=== PATIENT | female | born 1965 | race Hispanic/Latino ===

== ENCOUNTER 2017-09-18 10:15 | Emergency (ER) | payer OTHER ==
[2017-09-18 11:03] LABS: BASOPHILS % (AUTO) 0.7 % (0.0-5.0); EOSINOPHILS % (AUTO) 2.7 % (0.0-8.0); HEMATOCRIT 34.1 % (36-48); LYMPHOCYTES % (AUTO) 33.6 % (21.0-51.0); MEAN CORPUSCULAR HEMOGLOBIN 32.1 pg (27.0-33.0); MEAN CORPUSCULAR HGB CONC 34.9 g/dL (32.0-36.0); MEAN CORPUSCULAR VOLUME 91.9 fL (79-99); MONOCYTES % (AUTO) 5.8 % (3.0-13.0); NEUTROPHILS % (AUTO) 57.2 % (40.0-77.0); PLATELET COUNT (AUTO) 214 K/uL (130-400); RED BLOOD CELL COUNT(AUTO) 3.71 MIL/uL (4.00-5.50); RED CELL DISTRIBUTION WIDTH 13.3 % (11.0-15.5); WHITE BLOOD COUNT (AUTO) 6.3 K/uL (4.8-10.8)
[2017-09-18 11:10] LABS: CREATININE 0.7 mg/dL (0.5-1.5)
== END 2017-09-18 12:03 | disposition home or self-care (01) ==
LOC: EDH 10:15
DX: H65.03 Acute serous otitis media, bilateral (principal); I10 Essential (primary) hypertension; E11.9 Type 2 diabetes mellitus without complications; E78.5 Hyperlipidemia, unspecified
CPT/HCPCS: 36415; 80048; 84484; 85025

== ENCOUNTER 2017-10-04 20:16 | Emergency (ER) | payer OTHER | END 2017-10-04 20:52 | disposition home or self-care (01) | LOC: EDH 20:16 | DX: I10 Essential (primary) hypertension (principal); E11.65 Type 2 diabetes mellitus with hyperglycemia; E78.5 Hyperlipidemia, unspecified; Z90.710 Acquired absence of both cervix and uterus; Z90.49 Acquired absence of other specified parts of digestive tract | CPT/HCPCS: 82948; 99282 ==

== ENCOUNTER 2019-08-02 01:19 | Emergency (ER) | payer OTHER ==
[2019-08-02] MEDS ORDERED: ORPHENADRINE CITRATE 30 MG/ML ML ONE (02:01)
[2019-08-02] MEDS ORDERED: KETOROLAC TROMETHAMINE 60 MG/2 ML VIAL ONE (02:01)
== END 2019-08-02 02:43 | disposition home or self-care (01) ==
LOC: EDH 01:19
DX: M54.6 Pain in thoracic spine (principal); M62.838 Other muscle spasm; G44.209 Tension-type headache, unspecified, not intractable; E11.9 Type 2 diabetes mellitus without complications; E78.5 Hyperlipidemia, unspecified; I10 Essential (primary) hypertension
CPT/HCPCS: 96372 ×2; 99284; J1885; J2360

== ENCOUNTER 2024-05-27 13:18 | Emergency (ER) | payer BC, OTHER ==
[~2024-05-27] VITALS: Ht 160 cm; Wt 75.7 kg
[~2024-05-27 13:18] MED LIST: CIPR-278 PO
[2024-05-27 13:27] VITALS: BP_DIAS 76
[2024-05-27] MEDS: OCTYL 2-CYANOACRYLATE 1 EACH TP SCH (14:24)
[2024-05-27] MEDS: teTANUS/diphthERIA TOXOID [ADULT] 0.5 ML VIAL IM ONE (14:29)
--- NOTE | 2024-05-27 14:56 | ERN ---
General Chief Complaint: Laceration/Avulsion Stated Complaint: LACERACTION ON LEFT FINGER Time Seen by MD: 13: Time Seen by Midlevel: 13:22 Source: patient History of Present Illness Initial Comments Patient is a 58-year-old female with a past medical history of type 2 diabetes presenting for evaluation of a laceration to her left thumb. Patient states she was cooking when she accidentally sliced her left thumb. She denies being up-to-date with her tetanus vaccination and states she has not had one in over 10 years. Patient denies any other symptoms at this time. Allergies: Coded Allergies: No Known Drug Allergies (Unverified Allergy, Unknown, 08/02/19) Home Meds Active Scripts Ciprofloxacin HCl (Cipro) 500 Mg Tablet, 1 TAB PO BID for 7 Days, #14 TAB 0 Refills Prov:GANGA PARIKH MD 09/19/21 Past Medical History Past Medical History: Diabetes-Type II, High Cholesterol Past Surgical History: Other Surgical History Other: TUBAL LIGATION ROS Dictation CONSTITUTIONAL: Negative except for HPI HEAD/FACE: Negative except for HPI EENT: Negative except for HPI RESPIRATORY: Negative except for HPI GASTROINTESTINAL/ABDOMINAL: Negative except for HPI GENITOURINARY: Negative except for HPI MUSCULOSKELETAL: Negative except for HPI INTEGUMENTARY: Negative except for HPI NEUROLOGICAL/PSYCH: Negative except for HPI HEMATOLOGIC/LYMPHATIC: Negative except for HPI All Systems Negative, Except as noted above. 13 point review of systems assessed and all negative except for above. Physical Exam Physical Exam Dictation PHYSICAL EXAM: GENERAL: alert,, awake oriented x 3 HEENT: EOMI, Sclera non icteric, moist mucosa NECK: Supple, no JVD, trachea midline LUNGS: Clear breath sounds bilaterally. No wheezes HEART: Regular rate and rhythm. Normal S1 and S2, without murmurs ABD: Abdomen soft, nontender. Bowel sounds present EXT: No clubbing or cyanosis, NEURO: Alert and oriented to person, follows commands Skin: 1 cm laceration to the distal aspect of the left thumb, there is now involvement, normal capillary refill to the left hand, left upper extremity is neurovascularly intact MDM MDM: Patient is a 58-year-old female with a past medical history of type 2 diabetes presenting for evaluation of a laceration to her left thumb. Patient states she was cooking when she accidentally sliced her left thumb. She denies being up-to-date with her tetanus vaccination and states she has not had one in over 10 years. Patient denies any other symptoms at this time. On physical examination patient has a 1 cm superficial laceration to the left distal 1st digit, there is nail involvement with minimal actively bleeding. Left hand is neurovascularly intact. No need for advanced imaging at this time as laceration appears to be superficial. Patient is refusing sutures. Laceration was successfully repaired with Dermabond after being thoroughly cleansed with wound cleanser. Tetanus vaccination was given in the emergency department patient wi ll be discharged home. Wound care precautions were given to the patient. Patient was advised to follow up with PCP in 2-3 days for repeat evaluation. Differential diagnosis: Laceration, abrasion, contusion There are no social concerns with this patient. Prescription drug management Prescriptions will include: None Medical management and examination interpretation discussions were had by me with other qualified healthcare professionals as indicated for the patient's care. ED Course Orders Procedure Category Date Status Time Dermabond (Dermabond) PHA 05/27/24 Complete 14:30 Tetanus,Diphtheria PHA 05/27/24 Complete Tox [Adult] (Diphther 14:30 Current Medications Medications (Trade) Dose Ordered Sig/Bonifacio Route PRN Reason Start Time Stop Time Status Last Admin Dose Admin Octyl Cyanoacrylate (Dermabond) 1 each ONCE TP 05/27/24 14:30 05/27/24 15:21 DC 05/27/24 14:24 Tetanus/ Diphtheria Toxoids Adsorbed (DiphthERIA-teTANUS TOXOID [ADULT]/ DECAVAC) 0.5 ml ONCE ONCE IM 05/27/24 14:30 05/27/24 14:31 DC 05/27/24 14:29 Vital Signs Date Time Temp Pulse Resp B/P (MAP) Pulse Ox O2 Delivery O2 Flow Rate FiO2 05/27/24 15:18 98.1 74 16 136/ 100 Room Air* 0 21 05/27/24 13:27 97.9 92 20 124/76 99 Room Air Laceration/Wound Repair Laceration/Wound Repair : Wound Location: upper extremity (Distal aspect of the left 1st digit) Wound Length (cm): 1 Wound's Depth, Shape: superficial Wound Explored: clean Betadine Prep?: No Wound Debrided: minimal Wound Repaired With: Dermabond Layer Closure?: No Sterile Dressing Applied?: Yes DX & DISP Disposition: Discharge Departure Impression: Primary Impression: Laceration of left thumb Condition: Stable Additional Instructions: Your laceration was successfully repaired with Dermabond. If you develop any signs of infection please report to the ER for further evaluation. Follow up with your primary care doctor in 2-3 days for repeat evaluation. Referrals: SELF,REFERRAL (PCP) Time of Disposition: 14:54 I have reviewed the case, and I agree with, Diagnosis and Plan I performed the substantive portion of the visit. I have reviewed and personally made and approve the management plan that is documented in the note by myself or the JANICE. I acknowledge for responsibility for the patient's management plan. HIGINIO RUIZ May 27, 2024 14:56 NAZANIN KELLEY DO May 27, 2024 18:38
[2024-05-27 15:18] VITALS: BP_SYST 136; PULSE 74; RESP 16; TEMP 98; O2SAT 100
== END 2024-05-27 15:21 | disposition home or self-care (01) ==
LOC: EDH 13:18
DX: S61.012A Laceration without foreign body of left thumb without damage to nail, initial encounter (principal); E11.9 Type 2 diabetes mellitus without complications; E78.00 Pure hypercholesterolemia, unspecified; Z98.51 Tubal ligation status; Z98.890 Other specified postprocedural states; X19.XXXA Contact with other heat and hot substances, initial encounter; Y93.G3 Activity, cooking and baking; Y92.89 Other specified places as the place of occurrence of the external cause; Y99.8 Other external cause status
CPT/HCPCS: 12001; 90471; 90714

== ENCOUNTER → 2024-09-27 | Outpatient (CLI) | payer OTHER ==
--- NOTE | 2024-09-27 11:33 | HMCIMG ---
CT calcium scoring Clinical Information: [facility] SCREENING Comparison: None CT Dose Index (CTDI): 13.30 mGy Dose Length Product (DLP): 186.18 total mGy-cm Findings: Calcium score 143.1. Moderate calcification. The CT scan is not a complete chest CT. Covered portion is reviewed for incidental findings. No incidental findings seen. IMPRESSION: Calcium score as above. Calcium score reference stable: 0: No identifiable calcification 1- 10: Minimal identifiable calcification 11-100: Mild calcification 101- 400: Moderate calcification 401 and above: Significant calcification Automated exposure control and adequate statistical iterative reconstructions were utilized as dose reduction techniques.
== END | disposition home or self-care (01) ==
LOC: RAH 10:38
PROVIDERS: ATTEND Internal Medicine Cardiovascular Disease
DX: Z13.6 Encounter for screening for cardiovascular disorders (principal); R93.1 Abnormal findings on diagnostic imaging of heart and coronary circulation
CPT/HCPCS: 75571